=== PATIENT | male | born 1985 | race Caucasian/White ===

== ENCOUNTER 2018-01-29 15:20 | Observation (INO) | payer SELFPAY ==
[2018-01-29] MEDS ORDERED: SODIUM CHLORIDE 500 ML IV STA (15:31)
--- NOTE | 2018-01-29 16:04 | PDOC ---
History of Present Illness - General Chief Complaint: Syncope/Near Syncope Stated Complaint: SYNCOPE Time Seen by Provider: 01/29/18 15:23 History Source: Patient - History of Present Illness Presenting Symptoms: Syncope Timing/Duration: reports: resolved prior to arrival Past History - Past Medical History Allergies/Adverse Reactions: Allergies Allergy/AdvReac Type Severity Reaction Status Date / Time gluten Allergy Verified 01/29/18 15:30 Home Medications: Ambulatory Orders NK [No Known Home Medication] 01/29/18 Review of Systems - Review of Systems Constitutional: No: Fever Respiratory: No: Shortness of Breath Cardiac (ROS): Yes: Syncope. No: Chest Pain, Palpitations, Chest Tightness ABD/GI: Yes: Nausea. No: Vomiting *Physical Exam - Vital Signs Last Vital Signs Temp Pulse Resp BP Pulse Ox 97.0 F L 85 18 114/77 100 01/29/18 15:30 01/29/18 15:30 01/29/18 15:30 01/29/18 15:30 01/29/18 15:30 - Physical Exam General Appearance: Yes: Appropriately Dressed. No: Apparent Distress HEENT: positive: Normal Voice Neck: positive: Supple Respiratory/Chest: positive: Lungs Clear, Normal Breath Sounds. negative: Respiratory Distress Cardiovascular: positive: Regular Rate, S1, S2 Gastrointestinal/Abdominal: positive: Soft. negative: Tender Extremity: positive: Normal Inspection. negative: Pedal Edema Integumentary: positive: Dry, Warm Neurologic: positive: senior report developer II-XII NML intact, Fully Oriented, Alert, Normal Mood/ Affect, Motor Strength 5/5, Finger to Nose. negative: Facial Droop, Confused, Disoriented Heart Score/ECG Review - ECG Intrepretation Comment:: 01/29/18 17:07 Twelve-lead EKG was performed and reviewed by me. There is normal sinus rhythm with a normal rate. The axis is normal. The intervals are normal. There are no ST or T wave abnormalities. Impression: Normal twelve-lead EKG ED Treatment Course - LABORATORY CBC & Chemistry Diagram: 01/29/18 15:50 01/29/18 15:50 - ADDITIONAL ORDERS Additional order review: Laboratory Results 01/29/18 15:50 Sodium 138 Potassium 4.8 Chloride 106 Carbon Dioxide 25 Anion Gap 7 L BUN 20 H Creatinine 1.2 Creat Clearance w eGFR > 60 Random Glucose 188 H Calcium 8.1 L Total Bilirubin 0.2 AST 24 ALT 52 Alkaline Phosphatase 58 Creatine Kinase 349 H Troponin I < 0.02 Total Protein 6.6 Albumin 3.3 L 01/29/18 15:50 RBC 5.03 MCV 82.9 MCHC 34.1 RDW 13.9 MPV 11.1 Neutrophils % 66.4 Lymphocytes % 28.8 Monocytes % 3.4 L Eosinophils % 1.0 Basophils % 0.4 - RADIOLOGY Radiology Studies Ordered: Category Date Time Status HEAD CT WITHOUT CONTRAST [CT] Stat CT Scan 01/29/18 17:41 Ordered CHEST PA & LAT [RAD] Stat Radiology 01/29/18 15:30 Taken - Medications Given in the ED: ED Medications Discontinued Medications Generic Name Dose Route Start Last Admin Trade Name Lyubov PRN Reason Stop Dose Admin Sodium Chloride 500 mls @ 500 mls/hr 01/29/18 15:31 01/29/18 16:35 Normal Saline - IV 01/29/18 16:30 500 mls/hr ASDIR STA Administration Medical Decision Making - Medical Decision Making 01/29/18 15:31 32-year-old male, denies any past medical history here, brought in by EMS after witnessed syncope today. As per patient's , who is helping to give history in the ER, after coming indoors from playing basketball, pt complained of "breaking out in hives" and nausea and at some point syncopized and regained consciousness spontaneously after several seconds per . No seizure activity , tongue biting or incontinence. Patient was then able to ambulate to the bathroom but while on toilet patient's "eyes started rolling in the back of his head" at which point called 911 as per history. Per EMS, patient was hypotensive to 90s over 70s en route. Given 1 L NS enroute. Patient reports that he is feeling better at this time with improvement of vitals at triage. Patient denies any chest pain or shortness of breath. Feeling mildly dizzy currently but no headache, visual changes, or focal weakness. Denies history of syncope in the past, but as per , patient became "dehydrated" after playing sports in the past. Patient denies illicit drug use and no significant family history. See exam Syncope w/ hypotension at scene Possibly vasovagal, r/o cardiac vs metabolic, less likely infectious, cva or seizure Stable w/ unremarkable exam -ekg -cxr -labs -CT head -discuss dispo w/ ED attg 01/29/18 16:09 As discussed with ED attending, patient will most likely be admitted to observation for cardiac workup including echo. 01/29/18 17:07 EKG and labs unremarkable. CT head pending. Patient remains stable in ED with no further episodes of syncope. Requesting water at this time. As discussed with ED attending, will admit to OBs for further evaluation. *DC/Admit/Observation/Transfer Diagnosis at time of Disposition: Syncope Qualifiers: Syncope type: unspecified Qualified Code(s): R55 - Syncope and collapse - Discharge Dispostion Condition at time of disposition: Fair Admit: Yes Decision to Admit order Date/Time: Decision to Admit Order Category Date Time Status Decision to Admit to Hospital Routine Admission 01/29/18 17:55 Active - Referrals - Patient Instructions - Post Discharge Activity
[2018-01-29 16:19] LABS: BASO % 0.4 % (0-2.0); HEMATOCRIT 41.7 % (35.4-49); HEMOGLOBIN 14.2 GM/dL (11.7-16.9); LYMPH % 28.8 % (8-40); MCH 28.3 pg (25.7-33.7); MCHC 34.1 g/dl (32.0-35.9); MEAN CELL VOLUME 82.9 fl (80-96); MEAN PLT VOLUME 11.1 fl (7.5-11.1); MONO % 3.4 % (3.8-10.2); NEUT % 66.4 % (42.8-82.8); PLATELET COUNT 171 K/MM3 (134-434); RBC 5.03 M/mm3 (4.00-5.60); RDW 13.9 % (11.9-15.9); WHITE BLOOD COUNT 7.6 K/mm3 (4.0-10.0)
[2018-01-29 16:43] LABS: ALBUMIN 3.3 g/dl (3.4-5.0); ALK PHOS 58 U/L (45-117); ANION GAP 7 (8-16); BILIRUBIN,TOTAL 0.2 mg/dL (0.2-1.0); BLOOD UREA NITROGEN 20 mg/dL (7-18); CALCIUM 8.1 mg/dL (8.5-10.1); CHLORIDE 106 mmol/L (98-107); CO2 25 mmol/L (21-32); CREATININE 1.2 mg/dL (0.7-1.3); GLUCOSE,RANDOM 188 mg/dL (74-106); POTASSIUM 4.8 mmol/L (3.5-5.1); SGOT/AST 24 U/L (15-37); SGPT/ALT 52 U/L (12-78); SODIUM 138 mmol/L (136-145); TOT PROT 6.6 g/dl (6.4-8.2)
[2018-01-29] MEDS ORDERED: SODIUM CHLORIDE 1,000 ML IV SCH (18:30)
--- NOTE | 2018-01-29 18:41 | HP ---
<DarnellHillary - Last Filed: 01/29/18 18:42> CHIEF COMPLAINT: syncope PCP: none HISTORY OF PRESENT ILLNESS: This is a 32 year old male no known past medical history BIBA due to syncopal episode. Patient giving history along with . State he was at [facility], he ate a hamburger, then started to play basketball and began to sweat, he then broke out into hives with feelings of face swelling. Patient states "I think I' m allergic to gluten, because every time I eat bread. I break out into hives when I sweats." When patient started to notice the hive, he went into the house to change clothes, while changing, patient fainted, LOC [id number], witnessed by . He then got up from floor, felt dizzy and unsteady, sat on toilet and again lost consciousness, now for "few minutes" as per family. Family had to hold him up. Denies head injury, body injury, tongue biting, bowel or bladder incontinence, chest pain, sob, CASTRO, palpitations. ER course was notable for: (1)ECG no st/t wave abnormalities; troponin neg x1; CK slightly elevated (2)Head CT (3) IV fluids Recent Travel: no PAST MEDICAL HISTORY: none PAST SURGICAL HISTORY: none Social History: Smoking:none Alcohol:occasional Drugs: none Family History: +family history of HTN on mother; NO known family history of heart disease, cardiomyopathy , DM, stroke Allergies gluten Allergy (Verified 01/29/18 15:30) HOME MEDICATIONS: Home Medications Medication Instructions Recorded NK [No Known Home Medication] 01/29/18 REVIEW OF SYSTEMS CONSTITUTIONAL: Absent: fever, chills, diaphoresis, generalized weakness, malaise, loss of appetite, weight change HEENT: Absent: rhinorrhea, nasal congestion, throat pain, throat swelling, difficulty swallowing, mouth swelling, ear pain, eye pain, visual changes CARDIOVASCULAR: Positive: syncope, lightheadedness Absent: chest pain, syncope, irregular heart rate,peripheral edema RESPIRATORY: Absent: cough, shortness of breath, dyspnea with exertion, orthopnea, wheezing, stridor, hemoptysis GASTROINTESTINAL: Absent: abdominal pain, abdominal distension, nausea, vomiting, diarrhea, constipation, melena, hematochezia GENITOURINARY: Absent: dysuria, frequency, urgency, hesitancy, hematuria, flank pain, genital pain MUSCULOSKELETAL: Absent: myalgia, arthralgia, joint swelling, back pain, neck pain SKIN: Positive; rash Absent: rash, itching, pallor HEMATOLOGIC/IMMUNOLOGIC: Absent: easy bleeding, easy bruising, lymphadenopathy, frequent infections ENDOCRINE: Absent: unexplained weight gain, unexplained weight loss, heat intolerance, cold intolerance NEUROLOGIC: Absent: headache, focal weakness or paresthesias, dizziness, unsteady gait, seizure, mental status changes, bladder or bowel incontinence PSYCHIATRIC: Absent: anxiety, depression, suicidal or homicidal ideation, hallucinations. PHYSICAL EXAMINATION Vital Signs - 24 hr 01/29/18 15:30 Temperature 97.0 F L Pulse Rate 85 Respiratory 18 Rate Blood Pressure 114/77 O2 Sat by Pulse 100 Oximetry (%) GENERAL: overweight ; Awake, alert, and fully oriented, in no acute distress. HEAD: Normal with no signs of trauma. EYES: Pupils equal, round and reactive to light, extraocular movements intact, sclera anicteric, conjunctiva clear. No lid lag. EARS, NOSE, THROAT: Ears normal, nares patent, oropharynx clear without exudates. Moist mucous membranes. NECK: Normal range of motion, supple without lymphadenopathy, JVD, or masses. LUNGS: Breath sounds equal, clear to auscultation bilaterally. No wheezes, and no crackles. No accessory muscle use. HEART: Regular rate and rhythm, normal S1 and S2 without murmur, rub or gallop. ABDOMEN: Soft, nontender, not distended, normoactive bowel sounds, no guarding, no rebound, no masses. No hepatomegaly or splenomegaly. MUSCULOSKELETAL: Normal range of motion at all joints. No bony deformities or tenderness. No CVA tenderness. UPPER EXTREMITIES: 2+ pulses, warm, well-perfused. No cyanosis. No clubbing. No peripheral edema. LOWER EXTREMITIES: 2+ pulses, warm, well-perfused. No calf tenderness. No peripheral edema. NEUROLOGICAL: Cranial nerves II-XII intact. Normal speech. motor/sensation all intact; reflexes wnl PSYCHIATRIC: Cooperative. Good eye contact. Appropriate mood and affect. SKIN: Warm, dry, normal turgor, no rashes or lesions noted, normal capillary refill. Laboratory Results - last 24 hr 01/29/18 01/29/18 15:50 15:50 WBC 7.6 RBC 5.03 Hgb 14.2 Hct 41.7 MCV 82.9 MCH 28.3 MCHC 34.1 RDW 13.9 Plt Count 171 MPV 11.1 Neutrophils % 66.4 Lymphocytes % 28.8 Monocytes % 3.4 L Eosinophils % 1.0 Basophils % 0.4 Sodium 138 Potassium 4.8 Chloride 106 Carbon Dioxide 25 Anion Gap 7 L BUN 20 H Creatinine 1.2 Creat Clearance w eGFR > 60 Random Glucose 188 H Calcium 8.1 L Total Bilirubin 0.2 AST 24 ALT 52 Alkaline Phosphatase 58 Creatine Kinase 349 H Troponin I < 0.02 Total Protein 6.6 Albumin 3.3 L ASSESSMENT/PLAN: This is a 32 year old male with with no known medical history, not on any medications, presents with syncopal episode after allergic reaction. #LOC -most likely secondary to vasovagal episode after an allergic reaction -maybe increased vasodilation due to histamine release; vs dehydration from sports, orthostatic hypotension -ECG nsr; -get echo ; eval valves, wall motion; r/o HCOM -hydration -youth nutritional monitor -orthostatic vitals -check electrolytes, ms, and tsh -cardiac consult #allergic rxn; -Benadryl prn -currently not swollen; -airway clear #hyperglycemia: -non fasting -if elevated in am ; will work up with hemA1C Diet -regular DVT proph; scds Visit type - Emergency Visit Emergency Visit: Yes Care time: The patient presented to the Emergency Department on the above date and was hospitalized for further evaluation of their emergent condition. - New Patient This patient is new to me today: Yes Date on this admission: 01/29/18 - Critical Care Critical Care patient: No Hospitalist Screening - Colonoscopy Questionnaire Colonoscopy Questionnaire: Colonoscopy Questionnaire - Patient: 50 - 75 years old and never had a screening colonoscopy: No History of colon or rectal polyps, or CA: Unknown History of IBD, Crohn's disease or UC: Unknown History of abdominal radiation therapy as a child: Unknown - Relative: 1 with colon or rectal CA, or polyps at age 60 or younger: Unknown Colon or rectal CA diagnosed at age 45 or younger: Unknown Multiple relatives with colon or rectal CA: Unknown - Outcome: Screening Result: Negative Screen <Que June - Last Filed: 01/29/18 20:03> A/P: Syncope most likely Vasovagal, possible due to histamine release as per patient states that he is allergic to Gluten. Acute dehydration. Echo ordered, cardio was consulted for possible cardiomyopathy . Vital Signs Temperature 97.0 F L 01/29/18 15:30 Pulse Rate 85 01/29/18 15:30 Respiratory Rate 18 01/29/18 15:30 Blood Pressure 114/77 01/29/18 15:30 O2 Sat by Pulse Oximetry (%) 100 01/29/18 15:30 CBCD WBC 7.6 K/mm3 (4.0-10.0) 01/29/18 15:50 RBC 5.03 M/mm3 (4.00-5.60) 01/29/18 15:50 Hgb 14.2 GM/dL (11.7-16.9) 01/29/18 15:50 Hct 41.7 % (35.4-49) 01/29/18 15:50 MCV 82.9 fl (80-96) 01/29/18 15:50 MCHC 34.1 g/dl (32.0-35.9) 01/29/18 15:50 RDW 13.9 % (11.9-15.9) 01/29/18 15:50 Plt Count 171 K/MM3 (134-434) 01/29/18 15:50 MPV 11.1 fl (7.5-11.1) 01/29/18 15:50 CMP Sodium 138 mmol/L (136-145) 01/29/18 15:50 Potassium 4.8 mmol/L (3.5-5.1) 01/29/18 15:50 Chloride 106 mmol/L (98-107) 01/29/18 15:50 Carbon Dioxide 25 mmol/L (21-32) 01/29/18 15:50 Anion Gap 7 (8-16) L 01/29/18 15:50 BUN 20 mg/dL (7-18) H 01/29/18 15:50 Creatinine 1.2 mg/dL (0.7-1.3) 01/29/18 15:50 Creat Clearance w eGFR > 60 (>60) 01/29/18 15:50 Random Glucose 188 mg/dL (74-106) H 01/29/18 15:50 Calcium 8.1 mg/dL (8.5-10.1) L 01/29/18 15:50 Total Bilirubin 0.2 mg/dL (0.2-1.0) 01/29/18 15:50 AST 24 U/L (15-37) 01/29/18 15:50 ALT 52 U/L (12-78) 01/29/18 15:50 Alkaline Phosphatase 58 U/L (45-117) 01/29/18 15:50 Total Protein 6.6 g/dl (6.4-8.2) 01/29/18 15:50 Albumin 3.3 g/dl (3.4-5.0) L 01/29/18 15:50 CARDIAC ENZYMES Creatine Kinase 349 IU/L (39-308) H 01/29/18 15:50 Troponin I < 0.02 ng/ml (0.00-0.05) 01/29/18 15:50 Current Medications Generic Name Dose Route Start Last Admin Trade Name Freq PRN Reason Stop Dose Admin Sodium Chloride 1,000 mls @ 100 mls/hr 01/29/18 18:30 01/29/18 19:53 Normal Saline - IV 100 mls/hr ASDIR [facility] Administration Hospitalist Screening - Colonoscopy Questionnaire Colonoscopy Questionnaire: Colonoscopy Questionnaire
[2018-01-30 07:07] VITALS: TEMP 97.9
[2018-01-30 07:11] LABS: BASO % 0.3 % (0-2.0); EOS % 1.6 % (0-4.5); HEMATOCRIT 38.8 % (35.4-49); HEMOGLOBIN 13.2 GM/dL (11.7-16.9); LYMPH % 35.1 % (8-40); MCH 28.2 pg (25.7-33.7); MCHC 34.1 g/dl (32.0-35.9); MEAN CELL VOLUME 82.6 fl (80-96); MEAN PLT VOLUME 11.1 fl (7.5-11.1); PLATELET COUNT 165 K/MM3 (134-434); RBC 4.69 M/mm3 (4.00-5.60); RDW 13.8 % (11.9-15.9); WHITE BLOOD COUNT 7.8 K/mm3 (4.0-10.0)
[2018-01-30 08:04] LABS: CHLORIDE 107 mmol/L (98-107); POTASSIUM 4.2 mmol/L (3.5-5.1); SODIUM 138 mmol/L (136-145)
[2018-01-30 08:09] LABS: ANION GAP 7 (8-16); BLOOD UREA NITROGEN 17 mg/dL (7-18); CALCIUM 8.6 mg/dL (8.5-10.1); CO2 24 mmol/L (21-32); CREATININE 0.8 mg/dL (0.7-1.3); GLUCOSE,RANDOM 84 mg/dL (74-106); MAGNESIUM 1.9 mg/dL (1.8-2.4)
--- NOTE | 2018-01-30 09:55 | CON.CARD ---
Cardiology Consult (text) - Consultation Consultation Note: cc: syncope hpi: 32 m no sig pmhx here with syncope. Ate lunch yesterday then was playing basketball and shortly after noticed rash on skin/hives. He then had brief 1-2 second episode of presyncope. Then went to bathroom and passed out. No cp, sob , palps, pnd, orthopnea, le edema. No exertional sxs. No hx hrt dz. Feels well now. pmh: per hpi psh: nc social: no tob fam: no premature cad, scd ros: per hpi; no nvd, weinstein ,vision changes, gib, hematuria, dysuria, wt loss, muscle pain meds: none taken pe: Vital Signs Period Temp Pulse Resp BP Sys/Corrales Pulse Ox Last 24 Hr 97.0 F-98.5 F 73-89 18-18 110-138/77-87 98-100 nad nojvd rrr s1s2 no mrg ctabl nl eff aao3 no le e/c/c abd nt nd pos bs no jaundice diaphoresis pos dp pt no carotid bruits Laboratory Last Values WBC 7.8 K/mm3 (4.0-10.0) 01/30/18 06:35 RBC 4.69 M/mm3 (4.00-5.60) 01/30/18 06:35 Hgb 13.2 GM/dL (11.7-16.9) 01/30/18 06:35 Hct 38.8 % (35.4-49) 01/30/18 06:35 MCV 82.6 fl (80-96) 01/30/18 06:35 MCH 28.2 pg (25.7-33.7) 01/30/18 06:35 MCHC 34.1 g/dl (32.0-35.9) 01/30/18 06:35 RDW 13.8 % (11.9-15.9) 01/30/18 06:35 Plt Count 165 K/MM3 (134-434) 01/30/18 06:35 MPV 11.1 fl (7.5-11.1) 01/30/18 06:35 Neutrophils % 56.0 % (42.8-82.8) 01/30/18 06:35 Lymphocytes % 35.1 % (8-40) D 01/30/18 06:35 Monocytes % 7.0 % (3.8-10.2) D 01/30/18 06:35 Eosinophils % 1.6 % (0-4.5) 01/30/18 06:35 Basophils % 0.3 % (0-2.0) 01/30/18 06:35 Sodium 138 mmol/L (136-145) 01/30/18 06:35 Potassium 4.2 mmol/L (3.5-5.1) 01/30/18 06:35 Chloride 107 mmol/L (98-107) 01/30/18 06:35 Carbon Dioxide 24 mmol/L (21-32) 01/30/18 06:35 Anion Gap 7 (8-16) L 01/30/18 06:35 BUN 17 mg/dL (7-18) 01/30/18 06:35 Creatinine 0.8 mg/dL (0.7-1.3) D 01/30/18 06:35 Creat Clearance w eGFR > 60 (>60) 01/29/18 15:50 Random Glucose 84 mg/dL (74-106) D 01/30/18 06:35 Calcium 8.6 mg/dL (8.5-10.1) 01/30/18 06:35 Phosphorus 4.0 mg/dL (2.5-4.9) 01/30/18 06:35 Magnesium 1.9 mg/dL (1.8-2.4) 01/30/18 06:35 Total Bilirubin 0.2 mg/dL (0.2-1.0) 01/29/18 15:50 AST 24 U/L (15-37) 01/29/18 15:50 ALT 52 U/L (12-78) 01/29/18 15:50 Alkaline Phosphatase 58 U/L (45-117) 01/29/18 15:50 Creatine Kinase 349 IU/L (39-308) H 01/29/18 15:50 Creatine Kinase Index 0.8 % (0.0-5.0) 01/29/18 15:50 CK-MB (CK-2) 2.887 ng/mL (0.5-3.6) 01/29/18 15:50 Troponin I < 0.02 ng/ml (0.00-0.05) 01/30/18 06:30 Total Protein 6.6 g/dl (6.4-8.2) 01/29/18 15:50 Albumin 3.3 g/dl (3.4-5.0) L 01/29/18 15:50 TSH 1.36 uIU/ml (0.358-3.74) 01/30/18 06:35 cxr: clear lungs ecg: sr,nl intervals, no iscehmic changes tele: sr a/p: 32 m no sig pmhx here with syncope. syncope: -possible vasovagal episode related to allergic reaction to something he ate -no signs chf, acs, arrhythmias -tele benign -echo pending, if benign then ok for dc from cardiac pov. would consider allergy testing. if sxs recur would consider event monitor.
--- NOTE | 2018-01-30 11:34 | EKG ---
Test Reason : Blood Pressure : / mmHG Vent. Rate : 075 BPM Atrial Rate : 075 BPM P-R Int : 176 ms QRS Dur : 094 ms QT Int : 374 ms P-R-T Axes : 041 040 014 degrees QTc Int : 417 ms NORMAL SINUS RHYTHM NORMAL ECG NO PREVIOUS ECGS AVAILABLE Confirmed by BENITEZ MENJIVAR MD ([id number]) on 01/30/2018 11:34:06 AM Referred By: Confirmed By:BENITEZ MENJIVAR MD
[2018-01-30 12:01] VITALS: BMI 31.7
--- NOTE | 2018-01-30 13:34 | DS ---
Physical Exam: Work up is negative. Echo: no regional wall abnormality. Patient will be discharged home. Syncope most likely vasovagal. also was recommended for the patient to an allergenist for food allergy testing. <Que June - Last Filed: 01/30/18 15:35> Physical Exam: SUBJECTIVE: Patient seen and examined at bedside. No events overnight. Patient getting echo during evaluation. OBJECTIVE: Vital Signs Period Temp Pulse Resp BP Sys/Corrales Pulse Ox Last 24 Hr 97.0 F-98.5 F 72-89 - 110-138/77-87 97-100 PHYSICAL EXAM GENERAL: The patient is awake, alert, and fully oriented, in no acute distress. LUNGS: Breath sounds equal, clear to auscultation bilaterally, no wheezes, no crackles, no accessory muscle use. HEART: Regular rate and rhythm, S1, S2 without murmur, rub or gallop. ABDOMEN: Soft, nontender, nondistended, normoactive bowel sounds, no guarding, no rebound, no hepatosplenomegaly, no masses. EXTREMITIES: 2+ pulses, warm, well-perfused, no edema. NEUROLOGICAL: Cranial nerves II through X grossly intact. Normal speech, gait not observed. PSYCH: Normal mood, normal affect. SKIN: Warm, dry, normal turgor, no rashes or lesions noted. LABS Laboratory Results - last 24 hr 01/29/18 01/29/18 01/30/18 15:50 15:50 06:30 WBC 7.6 RBC 5.03 Hgb 14.2 Hct 41.7 MCV 82.9 MCH 28.3 MCHC 34.1 RDW 13.9 Plt Count 171 MPV 11.1 Neutrophils % 66.4 Lymphocytes % 28.8 Monocytes % 3.4 L Eosinophils % 1.0 Basophils % 0.4 Sodium 138 Potassium 4.8 Chloride 106 Carbon Dioxide 25 Anion Gap 7 L BUN 20 H Creatinine 1.2 Creat Clearance w eGFR > 60 Random Glucose 188 H Calcium 8.1 L Phosphorus Magnesium Total Bilirubin 0.2 AST 24 ALT 52 Alkaline Phosphatase 58 Creatine Kinase 349 H Creatine Kinase Index 0.8 CK-MB (CK-2) 2.887 Troponin I < 0.02 < 0.02 Total Protein 6.6 Albumin 3.3 L TSH 04/02/18 04/02/18 04/02/18 06:35 06:35 06:35 WBC 7.8 RBC 4.69 Hgb 13.2 Hct 38.8 MCV 82.6 MCH 28.2 MCHC 34.1 RDW 13.8 Plt Count 165 MPV 11.1 Neutrophils % 56.0 Lymphocytes % 35.1 D Monocytes % 7.0 D Eosinophils % 1.6 Basophils % 0.3 Sodium 138 Potassium 4.2 Chloride 107 Carbon Dioxide 24 Anion Gap 7 L BUN 17 Creatinine 0.8 D Creat Clearance w eGFR Random Glucose 84 D Calcium 8.6 Phosphorus 4.0 Magnesium 1.9 Total Bilirubin AST ALT Alkaline Phosphatase Creatine Kinase Creatine Kinase Index CK-MB (CK-2) Troponin I Total Protein Albumin TSH 1.36 HOSPITAL COURSE: Date of Admission:01/29/18 The patient is a 32 year old male no PMH who was BIBA due to syncopal episode. The patient was playing basketball and began to sweat, when he broke out into hives with feelings of face swelling. After noticing the hives, the patient stated that he went inside to change, then had 2 episodes of loss of consciousness witnessed by the patient's . In the ED, a CT of his head was negative for acute processes. An EKG showed NSR. His initial troponin was negative. The patient's rash and swelling had resolved since arriving in the ED. The patient was admitted for further workup of his syncope and to rule out a cardiac cause. Cardiology was consulted. The patient was treated with IV hydration and benadryl. His electrolytes and CBC were WNL. An echo showed a normal ejection fraction and no abnormalities. The patient was discharged with instructions to follow up with his primary care physician, a pan cleaner as well as an film booker to investigate his hives. Date of Discharge: 01/30/18 Minutes to complete discharge: 45 <Gurpreet Tipton - Last Filed: 01/30/18 21:50> Discharge Summary - Home Medications Comprehensive Discharge Medication List: Ambulatory Orders NK [No Known Home Medication] 01/29/18 <Que June - Last Filed: 01/30/18 15:35> Reason For Visit: SYNCOPE Current Active Problems Syncope (Acute) - Home Medications Comprehensive Discharge Medication List: Ambulatory Orders NK [No Known Home Medication] 01/29/18 <Gurpreet Tipton - Last Filed: 01/30/18 21:50> Condition: Improved - Instructions Diet, Activity, Other Instructions: You were admitted for the treatment of your syncope. Your symptoms were most likely due to dehydration, causing you to pass out. You should stay away from gluten, as you may be allergic to it. You should follow up with a heart doctor (pan cleaner) within one week of going home. Information for Dr. Hidalgo has been included in your discharge paperwork. Please call to make an appointment. You should follow up with your primary care doctor within one week of going home. Information for our resident clinic (Dr. Huber) has been included in your discharge paperwork. Please call to make an appointment You should follow up with a an allergy doctor to investigate your allergies. Information for Dr. Arteaga has been included in your discharge paperwork. Please call to make an appointment. If you begin to feel chest pain, shortness of breath, or is any of your symptoms get worse, please call your doctor or return top the emergency department. Referrals: Loc Huber MD [Staff Physician] - 1 Week Chris Hidalgo MD [Staff Physician] - 1 Week Kerline Arteaga [Non Staff, Medical] - Disposition: HOME This patient is new to me today: Yes Date on this admission: 01/30/18 Emergency Visit: No Critical Care patient: No - Discharge Referral Referred to [facility] Med P.C.: No <Gurpreet Tipton - Last Filed: 01/30/18 21:50>
[2018-01-30 14:15] VITALS: BP 133/79; PULSE 78
== END 2018-01-30 14:25 | disposition home or self-care (01) ==
LOC: JER 15:20 → JERBED 17:55
PROVIDERS: ADMIT Internal Medicine; ATTEND Internal Medicine
PROC: 3E0337Z Introduction of Electrolytic and Water Balance Substance into Peripheral Vein, Percutaneous Approach (ICD-10-PCS; principal; 2018-01-29)
DX: R55 Syncope and collapse (principal); K90.41 Non-celiac gluten sensitivity; Z91.018 Allergy to other foods
CPT/HCPCS: 36415; 70450-TC; 71046-TC-FY; 80048; 80053; 82550; 82553; 83735; 84100; 84443; 84484; 85025; 93005; 93010; 93306-TC; 96360; 99284-25; G0378; J7030